=== PATIENT | female | born 1950 | race Caucasian/White ===

== ENCOUNTER 2017-07-10 09:33 | Emergency (ER) | payer MEDICARE ==
[~2017-07-10] VITALS: Ht 149.9 cm; Wt 71.7 kg
[2017-07-10 09:41] VITALS: Ht 149.9 cm; Wt 71.7 kg
[2017-07-10 10:58] VITALS: BP 134/64
== END 2017-07-10 10:58 | disposition home or self-care (01) ==
LOC: ED 09:33
DX: J20.9 Acute bronchitis, unspecified (principal); I10 Essential (primary) hypertension; E78.00 Pure hypercholesterolemia, unspecified
CPT/HCPCS: J7620; Q0092

== ENCOUNTER 2019-04-28 08:13 | Emergency (ER) | payer MEDICARE ==
[~2019-04-28] VITALS: Ht 149.9 cm; Wt 72.6 kg
[2019-04-28 08:21] VITALS: Ht 149.9 cm; Wt 72.6 kg
[2019-04-28 10:41] VITALS: BP 109/29
== END 2019-04-28 10:41 | disposition home or self-care (01) ==
LOC: ED 08:13
DX: S93.401A Sprain of unspecified ligament of right ankle, initial encounter (principal); W01.0XXA Fall on same level from slipping, tripping and stumbling without subsequent striking against object, initial encounter; Y93.89 Activity, other specified; Y92.89 Other specified places as the place of occurrence of the external cause; Y99.8 Other external cause status; E78.00 Pure hypercholesterolemia, unspecified; I10 Essential (primary) hypertension

== ENCOUNTER 2019-05-09 09:18 | Emergency (ER) | payer MEDICARE ==
[~2019-05-09] VITALS: Ht 149.9 cm; Wt 72.1 kg
[2019-05-09 09:22] VITALS: BP 125/53; Ht 149.9 cm; Wt 72.1 kg
== END 2019-05-09 10:31 | disposition home or self-care (01) ==
LOC: ED 09:18
DX: K12.2 Cellulitis and abscess of mouth (principal); I10 Essential (primary) hypertension; E78.00 Pure hypercholesterolemia, unspecified